=== PATIENT | male | born 1990 | race Caucasian/White ===

== ENCOUNTER 2024-11-12 13:04 | Emergency (ER) | payer SELFPAY ==
--- NOTE | 2024-11-12 13:11 | ED.DENTAL ---
HPI - Dental/Oral General Chief complaint: Dental/Oral Stated complaint: Toothache Time Seen by Provider: 11/12/24 13:06 Source: patient Mode of arrival: ambulatory Limitations: no limitations History of Present Illness HPI Narrative: Patient is a 34-year-old male who presents with dental pain lower left. Patient unable to get in to dentist for 2 weeks. Denies any fever, chills, nausea, vomiting, diarrhea. Reports pain is equal to when he had a kidney stone. Related Data Allergies Allergy/AdvReac Type Severity Reaction Status Date / Time Penicillins Allergy Other Verified 11/12/24 13:19 Review of Systems Review of Systems: All systems reviewed & are unremarkable except as noted in HPI and below Constitutional: Constitutional: Denies body ache(s), Denies fever(s), Denies headache(s), Denies malaise and Denies weakness Eyes: Eyes: Denies loss of vision ENT: Denies otalgia, Reports facial pain (jaw), Denies headache(s), Denies nasal discharge, Denies sinus pain and Denies sore throat Cardiovascular: Cardiovascular: Denies chest pain, Denies irregular heart rhythm and Denies dyspnea Respiratory: Respiratory: Denies dyspnea Gastrointestinal: Gastrointestinal: Denies abdominal pain, Denies melena, Denies hematochezia, Denies diarrhea, Denies nausea and Denies vomiting Musculoskeletal: Musculoskeletal: Denies back pain, Denies myalgias and Denies arthralgias Integumentary/Breasts: Skin/Breast: Denies pruritus and Denies rash Neurologic: Denies headache(s), Denies loss of vision and Denies weakness Psychiatric: Psychiatric: Reports no additional psychiatric complaints PMFSH Comments At time of signature, agree with nursing past medical, surgical, social and family history. There is no relevant family history pertinent to the presenting complaint. Exam Const: General: cooperative, healthy appearing, comfortable, no acute distress and well nourished Nutritional Appearance: well nourished Orientation/consciousness: patient oriented x3 Limitations: no limitations HENMT: Head: normal to inspection, normocephalic and atraumatic Ears: hearing grossly normal bilaterally, external ears normal, TM's normal bilaterally and mastoids normal bilaterally Face/Nose/Sinus: Normal external nose present, normal facial exam and face symmetric Face and sinus: normal facial exam and face symmetric Mouth: Yes Normal oral and palatal mucosa present, Yes lip normal, Yes tongue normal, Yes Normal salivary glands and ducts present and Yes moist mucous membranes Teeth and gingiva: abnormal tooth and associated gingiva lower right second molar tender, with associated gingival edema and dentin fractured and poor dentition Eyes: General: appearance normal, both eyes and all related structures Alignment and Position: alignment normal and position normal Periorbital: periorbital findings normal Eyelids: eyelids normal Pupils: Equal, round and reactive pupils present EOM: EOMs intact bilaterally Neck: Neck: normal visual inspection, full ROM, no lymphadenopathy and supple Chest: Chest palpation & inspection: normal inspection of the chest Resp: Effort & Inspection: normal respiratory effort and able to speak in complete sentences Auscultation: clear to auscultation bilaterally Cardio: Rate: regular rate Rhythm: regular rhythm Heart sounds: S1 normal heart sound present and S2 normal heart sound present GI: Inspection: normal to inspection Skin: General skin exam: normal color and no rashes or lesions noted Neuro: General: patient oriented x3 and moves all extremities Cranial nerves: Yes Equal, round and reactive pupils present Speech: normal speech Gait exam (Neuro): Normal gait present Extrem: General: normal to inspection, full ROM and no edema Psych: Appearance: grossly normal and well kempt Mental Status: mental status grossly normal Speech and movement: Normal speech and movement present Affect: normal affect Attitude: cooperative Thought process: Normal thought process present Course Course Emergency Course: Patient is aware of diagnosis, understands and agrees to treatment plan. Anticipatory guidance given. Patient agrees to follow-up as directed and is aware of reasons to seek care at the emergency department. Portions of this record may have been created with voice recognition software Level of Care: Express Care Visit Vital Signs Vital signs: Vital Signs Temperature 36.9 C 11/12/24 13:16 Pulse Rate 85 11/12/24 13:16 Respiratory Rate 16 11/12/24 13:16 Blood Pressure 135/88 11/12/24 13:16 Pulse Oximetry 100 11/12/24 13:16 Oxygen Delivery Room Air 11/12/24 13:16 Temperature 36.9 C 11/12/24 13:16 Pulse Rate 85 11/12/24 13:16 Respiratory Rate 16 11/12/24 13:16 Blood Pressure 135/88 11/12/24 13:16 Pulse Oximetry 100 11/12/24 13:16 Oxygen Delivery Room Air 11/12/24 13:16 Reviewed MDM - Dental/Oral MDM Narrative Medical decision making narrative: Patients pain and complaint coupled with physical findings are consistant with dentalgia. There are no focal signs of space occupying lesions that are compromising to the airway; no dysphagia, odynophagia, dysphonia, or dyspnea. No uvular deviation or soft palate edema. Patient is non-toxic appearing. The floor of the mouth is soft with no signs of Valentin's Angina; no induration below mandible, no neck pain. Patient is without trismus or drooling and able to swallow secretions. Patient is felt appropriate for discharge home with dental follow up. Differential Diagnosis Differential diagnosis: Likely gingival abscess, dental caries, toothache, dental abscess and fracture of tooth Medical Records Attestation: I reviewed the patient's medical records. Discharge Plan Discharge Clinical Impression: Dental abscess Patient Disposition: Home, Self-Care Condition: Stable Instructions: Dental Abscess (ED) Additional Instructions: Take antibiotic until it's gone. Brushing teeth at least twice daily with gentle flossing. Avoid temperature extremes---when you eat. Salt gargle to rinse your mouth after every meal You may apply ice to the face to reduce pain/swelling. For pain, you may take: Tylenol 650-1000mg by mouth every 4-6 hours. Do not exceed 4000mg in 24 hours. Advil (Ibuprofen) 600 mg by mouth every 6 hours. Do not exceed 2400mg in 24 hours. Take Motrin alternating with Tylenol for pain and fever alternating every 3 hours. 8 AM: Tylenol 11 AM: Ibuprofen 2 PM: Tylenol 5 PM: Ibuprofen 8 PM: Tylenol 11 PM: Ibuprofen 2 AM: Tylenol 5 AM: Ibuprofen Also, recommend regular dental check up one-two times a year to prevent tooth decay and other periodontal disease. Follow-up with the dentist as soon as possible--see the list provided Patient Language: Citizen Of [place] Prescriptions: New clindamycin HCl 300 mg capsule 300 mg PO Q8H 14 Days Qty: 42 0RF ibuprofen 600 mg tablet 600 mg PO QID 14 Days Qty: 60 0RF No Action azithromycin 500 mg tablet 500 mg PO ONCE Qty: 2 0RF Follow-up/Referrals: UNKNOWN,DOCTOR [Primary Care Provider] - Stand Alone Forms: Work/School Release IP Time of Disposition: 13:29
[2024-11-12 13:16] VITALS: BP 135/88; PULSE 85; RESP 16; TEMP 36.9; O2SAT 100
--- OUTSIDE RECORDS SUMMARY | 2024-11-13 05:06 | XMS_ITS | Clinical Summary ---
Author Organization [facility] Address [address] [place] [address] Care Team Providers Care Practice Director Name Role Phone Brigitte Sweeney Primary Care Provider [phone] Allergies Active Allergy Reactions Criticality Noted Date Comments Amoxicillin Medications cyclobenzaprine (FLEXERIL) 10 mg tablet Take 1 tablet (10 mg total) by mouth nightly for 10 days 10 tablet 11/05/2022 Active Social History Tobacco Use Types Packs/Day Years Used Date Smoking Tobacco: Every Day Cigarettes Smokeless Tobacco: Never Tobacco Cessation:Ready to Q uit: Not Asked; Counseling Given: Not Answered Alcohol Use Standard Drinks/Week Comments Yes 0 (1 standard drink = 0.6 oz pur e alcohol) socially Personal Safety Answer Date Recorded Have you ever been in or are you currently in a harmful physical or emotional relationship or is someone making you feel afraid or unsafe? Denies 12/06/2023 Sex and Gender Information Value Date Recorded Sex Assigned at Not on file Legal Sex Male 10:10 AM MERCHANDISE SUPPORT ASSOCIATE Gender Identity Not on file Sexual Orientation Not on file Obstetrics History Last Filed Vital Signs Vital Sign Reading Time Taken Comments Blood Pressure 117/77 12/06/2023 11:08 AM MERCHANDISE SUPPORT ASSOCIATE Pulse 95 12/06/2023 11:08 AM MERCHANDISE SUPPORT ASSOCIATE Temperature 37 ??C (98.6 ??F) 12/06/2023 11:08 AM MERCHANDISE SUPPORT ASSOCIATE Respiratory Rate 16 12/06/2023 11:08 AM MERCHANDISE SUPPORT ASSOCIATE Oxygen Saturation 100% 12/06/2023 11:08 AM MERCHANDISE SUPPORT ASSOCIATE Inhaled Oxygen Concentration - - Weight 74.8 kg (165 lb) 12/06/2023 11:08 AM MERCHANDISE SUPPORT ASSOCIATE Height 175.3 cm (5' 9 ) 12/06/2023 11:08 AM MERCHANDISE SUPPORT ASSOCIATE Body Mass Index 24.37 12/06/2023 11:08 AM MERCHANDISE SUPPORT ASSOCIATE Plan of Treatment Health Maintenance Due Date Last Done Comments Depression Screening 1992 Hepatitis C Screening 1992 Pneumococcal vaccine <65 (1 of 2 - PCV) 1998 Varicella Vaccines (1 of 2 - 13+ 2-dose series) 2005 Regular Well Visit/Exam 18-64 2010 Influenza Vaccine (#1) 2024 DTaP/Tdap/Td Vaccine (7 - Td or Tdap) 05/08/2033 05/08/2023, 03/24/1997, 05/01/1994, Additional history exists HPV Vaccines Aged Out No longer eligi ble based on patient's age to complete this topic Care Teams Practice Director Relationship Specialty Start Date End Date Brigitte Sweeney PA [address] [address] PCP - General Abatement Worker 12/06/23
--- OUTSIDE RECORDS SUMMARY | 2024-11-13 05:06 | XMS_ITS | Referral Summary ---
Author Organization [facility] Address [address] [place] [address] Care Team Providers Care Key Entry Operator Name Role Phone Brigitte Sweeney Primary Care Provider [phone] Allergies Active Allergy Reactions Criticality Noted Date [...] on file Legal Sex Male 10:10 AM GRIDDLE ATTENDANT Gender Identity Not on file Sexual Orientation Not on file Last Filed Vital Signs Vital Sign Reading Time Taken Comments Blood Pressure 117/77 12/06/2023 11:08 AM GRIDDLE ATTENDANT Pulse 95 12/06/2023 11:08 AM GRIDDLE ATTENDANT Temperature 37 ??C (98.6 ??F) 12/06/2023 11:08 AM GRIDDLE ATTENDANT Respiratory Rate 16 12/06/2023 11:08 AM GRIDDLE ATTENDANT Oxygen Saturation 100% 12/06/2023 11:08 AM GRIDDLE ATTENDANT Inhaled Oxygen Concentration - - Weight 74.8 kg (165 lb) 12/06/2023 11:08 AM GRIDDLE ATTENDANT Height 175.3 cm (5' 9 ) 12/06/2023 11:08 AM GRIDDLE ATTENDANT Body Mass Index 24.37 12/06/2023 11:08 AM GRIDDLE ATTENDANT Plan of Treatment Not on file Care Teams Key Entry Operator Relationship Specialty Start Date End Date Brigitte Sweeney PA [address] [address] PCP - General Testing Manager 12/06/23
--- OUTSIDE RECORDS SUMMARY | 2024-11-13 05:06 | XMS_ITS | Clinical Summary ---
Author Organization [facility] Address [address] [place] [address] Phone Care Team Providers Care Catalyst Supervisor Name Role Phone Brigitte Sweeney GREG Primary Care Provider + Allergies Active Allergy Reactions Criticality Noted Date Comments Amoxicillin Swelling 04/14/2020 Throat swelling, rash Medications fluticasone (FLONASE) 50 MCG/ACT Suspension 2 Sprays by Nasal route daily. Use in each nostril as directed. 16 g 3 02/19/2023 Active pantoprazole (PROTONIX) 40 MG Tablet Delayed Response Take 1 Tablet by mouth daily. 90 Tablet 2 05/02/2023 Active Active Problems No known active problems Immunizations Immunization Administration Dates Next Due DTP Vaccine 03/24/1997, 4,03/10/1993,1992,1992 Hepatitis A Vaccine, Pediatric/adolescent, 2 Dose Schedule 09/01/2008 Hepatitis B Vaccine, Pediatric/adolescent 08/25/1997,04/28/1997 Hepatitis B Vaccine,unspecif ied Formulation 03/24/1997 MMR Vaccine 03/24/1997,05/01/1994 Polio Vaccine,unspecified Formulation ,03/10/1993,01/06/1993,1992 TDAP Vaccine 05/08/2023 Family History Medical History Relation Name Comments No Known Problems Brother 1 No Known Problems Brother 2 No Known Problems Father Chronic Obstructive Pulmonary Disease Mother Depression Mother Asthma Paternal Grandfather Hypertension Paternal Grandfather Relation Name Status Comments Brother 1 Alive Brother 2 Alive Father Alive Maternal Grandfather Maternal Grandmother Mother Alive Paternal Grandfather Alive Social History Tobacco Use Types Packs/Day Years Used Date Smoking Tobacco: Every Day Cigarettes 0.3 15 Smokeless Tobacco: Never Tobacco Cessation:Ready to Q uit: Not Asked; Counseling Given: Not Answered Alcohol Use Standard Drinks/Week Comments Yes 0 (1 standard drink = 0.6 oz pur e alcohol) socially PHQ-2 Answer Date Recorded Total Score - Questions 1-9 17 12/20 Education Answer Date Recorded What is the highest level of school you have completed or the highest degree you have received? GED or equivalent 10/2022 Sexually Active Control Partners Comments Not Currently Female Sex and Gender Information Value Date Recorded Sex Assigned at Not on file Legal Sex Male 9:10 PM CDT Gender Identity Male 08/29/2023 9:57 PM LOCOMOTIVE OPERATOR Sexual Orientation Straight 08/29/2023 9: 57 PM LOCOMOTIVE OPERATOR Last Filed Vital Signs Vital Sign Reading Time Taken Comments Blood Pressure 122/78 09/16/2023 2:44 PM LOCOMOTIVE OPERATOR Pulse 74 09/16/2023 2:44 PM LOCOMOTIVE OPERATOR Temperature 36.6 ??C (97.9 ??F) 09/16/2023 2:44 PM CS T Respiratory Rate 16 01/08/2023 4:17 PM CDT Oxygen Saturation 99% 09/16/2023 2:44 PM LOCOMOTIVE OPERATOR Inhaled Oxygen Concentration - - Weight 85.7 kg (189 lb) 09/16/2023 2:44 PM LOCOMOTIVE OPERATOR Height 175.3 cm (5' 9 ) 09/16/2023 2:44 PM LOCOMOTIVE OPERATOR Body Mass Index 27.91 09/16/2023 2:44 PM LOCOMOTIVE OPERATOR Plan of Treatment Health Maintenance Due Date Last Done Comments Pneumococcal Immunization Combined (1 of 2 - PCV) 2011 Influenza Immunization (#1) 2024 SARS-COV-2 Immunization ( season) 2024 DTaP/Tdap/Td Immunization (7 - Td or Tdap) 05/08/2033 05/08/2023, 03/24/1997, 05/01/1994, Additional history exists Respiratory Syncytial Virus (RSV) Immunization (Adult) (1 - 1-dose 75+ series) 2067 Hepatitis B Immunization Completed 997, 04/28/1997, 03/24/1997 Hepatitis C Virus (HCV) Screening Discontinued Meningococcal Immunization (ACWY) Aged Out No longer eligible based on patient's age to complete this topic Rotavirus Immunization Aged Out No lo nger eligible based on patient's age to complete this topic Insurance [id number] Care Teams Catalyst Supervisor Relationship Specialty Start Date End Date Brigitte Sweeney [address] [place] [address] PCP - General Physician Magnetic Locater 01/08/23
== END 2024-11-12 13:32 | disposition home or self-care (01) ==
PROVIDERS: Emergency Provider Nurse Practitioner Family
DX: K04.7 Periapical abscess without sinus (principal)
CPT/HCPCS: 99213; G0463